=== PATIENT | female | born 1965 | race Caucasian/White ===

== ENCOUNTER → 2020-08-13 | Outpatient (CLI) | payer OTHER ==
--- NOTE | 2020-08-15 13:49 | RAD ---
DATE: 08/13/2020 11:37 AM EXAM: DIGITAL SCREEN BILAT W/CAD HISTORY: Screening COMPARISON: 05/07/2019 Bilateral full field craniocaudal and mediolateral oblique images were obtained using digital technique. This study was interpreted with the benefit of Computerized Aided Detection (CAD). FINDINGS: Breast Density: SCATTERED The breast parenchyma shows scattered fibroglandular densities. Breast parenchyma level B No suspicious masses, microcalcifications or architectural distortion is present to suggest malignancy in either breast. The visualized axillae are unremarkable. IMPRESSION: No mammographic evidence of malignancy. BI-RADS CATEGORY: 1 NEGATIVE RECOMMENDED FOLLOW-UP: 12M 12 MONTH FOLLOW-UP Annual screening mammography is recommended, unless clinically indicated sooner based on symptoms or change in physical exam. PQRS compliance statement: Patient information was entered into a reminder system with a target due date for the next mammogram. Mammography is a sensitive method for finding small breast cancers, but it does not detect them all and is not a substitute for careful clinical examination. A negative mammogram does not negate a clinically suspicious finding and should not result in delay in biopsying a clinically suspicious abnormality. "Our facility is accredited by the [employer] Mammography Program."
== END ==
LOC: MAMMO 11:33
PROVIDERS: ATTEND Internal Medicine
DX: Z12.31 Encounter for screening mammogram for malignant neoplasm of breast (principal)
CPT/HCPCS: 77067

== ENCOUNTER 2021-10-16 12:03 | Observation (INO) | payer OTHER ==
[~2021-10-16] VITALS: Ht 160 cm; Wt 74.6 kg
[2021-10-16] MEDS ORDERED: ACETAMINOPHEN 500 MG TABLET PO ONE ×2 (12:45→12:47)
[2021-10-16] MEDS ORDERED: ONDANSETRON PF 4 MG/2 ML VIAL. IVP ONE (12:45)
[2021-10-16] MEDS ORDERED: IV RINGERS SOLUTION,LACTATED 1,000 ML IV ONE (12:45)
[2021-10-16] MEDS ORDERED: ONDANSETRON PF 4 MG/2 ML VIAL. ONE (12:47)
--- NOTE | 2021-10-16 12:59 | EKG ---
[address] [address] Test Date: 2021-10-16 Test Time: 12:53:54 Pat Name: STAN BACA Department: Room: Gender: F [employer] Operator: KATARINA : 1965 Requested By: KAJAL LEIJA Order Number: [id number] Reading MD: Clemente Trejo MD Measurements Intervals [place] Rate: 88 P: 42 VA: 188 QRS: 87 QRSD: 104 T: 17 QT: 358 QTc: 437 Interpretive Statements SINUS RHYTHM Electronically Signed On 10-16-2021 20:39:17 RN [facility] by Clemente Trejo MD
--- NOTE | 2021-10-16 13:11 | RAD ---
Single view of the chest. 10/16/2021 12:53 PM Indication: Shortness of breath Comparison: None Findings: Calcified granuloma noted in the right upper lobe. No pneumothorax or effusion is seen. Mil d interstitial coarsening is seen, possibly chronic. Heart size is normal. No acute osseous changes a re identified. IMPRESSION: No evidence of acute cardiopulmonary process Electronically signed by: Sudhir Olson MD (10/16/2021 1:08 PM) [id number]
[2021-10-16 13:16] LABS: BASO % 0 % (0-3); EOS # 0.1 x10^3/uL (0.0-0.7); EOS % 2 % (0-3); HEMATOCRIT 39.6 % (36.0-47.0); HEMOGLOBIN 13.2 g/dL (12.0-15.5); LYMPH % 18 % (24-48); MEAN CORPUSCULAR HEMOGLOBIN 27 pg (25-35); MEAN CORPUSCULAR HGB CONC 34 g/dL (31-37); MEAN CORPUSCULAR VOLUME 81 fL (79-100); MONO # 0.5 x10^3/uL (0.0-1.1); MONO % 9 % (0-9); NEUT % 72 % (31-73); PLATELET COUNT 178 x10^3/uL (140-400); RED BLOOD COUNT 4.91 x10^6/uL (3.50-5.40); RED CELL DISTRIBUTION WIDTH 14.2 % (11.5-14.5); WHITE BLOOD COUNT 5.6 x10^3/uL (4.0-11.0)
[2021-10-16 13:23] LABS: CALCIUM 9.2 mg/dL (8.5-10.1); CREATININE 1.3 mg/dL (0.6-1.0); GFR 42.7; POTASSIUM 3.7 mmol/L (3.5-5.1)
[2021-10-16 13:36] LABS: ALBUMIN 4.4 g/dL (3.4-5.0); TOTAL BILIRUBIN 0.6 mg/dL (0.2-1.0); TOTAL PROTEIN 8.6 g/dL (6.4-8.2)
[2021-10-16 13:37] LABS: INFLUENZA A PATIENT NEGATIVE (NEGATIVE); INFLUENZA B PATIENT NEGATIVE (NEGATIVE)
[2021-10-16] MEDS ORDERED: IOHEXOL 350 MG/ML 100 ML VIAL. IV ONE (13:45)
[2021-10-16] MEDS ORDERED: DEXAMETHASONE SOD PHOS 4 MG/ML VIAL. IVP ONE (13:45)
[2021-10-16] MEDS ORDERED: IPRATRPIUM/ALBUTEROL 0.5/2.5MG 3 ML NEBU. NEB ONE (14:15)
--- NOTE | 2021-10-16 14:16 | RAD ---
CTA CHEST INDICATION: COVID+, elev d dimer, SOA, COUGH Comparison: Radiograph 10/16/2021. TECHNIQUE: Following the uneventful administration of intravenous contrast, 75 cc Isovue-370, axial C T sections were obtained through the lungs and upper abdomen. Multiplanar reconstructions and MIP manuel ges were obtained. PQRS compliance statement: One or more of the following individualized dose reduction techniques were utilized for this examinat ion: 1. Automated exposure control 2. Adjustment of the mA and/or kV according to patient size 3. Use of iterative reconstruction technique FINDINGS: Pulmonary arteries: No evidence of pulmonary thromboembolic disease. Lungs and Airways: No pulmonary mass or consolidation. Calcified pulmonary granulomas. No abnormality of the central airways. Pleura: The pleural spaces are normal. Heart and Mediastinum: The visualized thyroid is normal in size and attenuation. No axillary or supra clavicular lymphadenopathy. No mediastinal, hilar or retrocrural lymphadenopathy. Calcified mediastin al and hilar lymph nodes consistent with remote granulomatous disease. The heart and pericardium are within normal limits. The great vessels of the thorax are normal. Abdomen: Limited images through the upper abdomen show no abnormality of the visualized organs. Bones and Soft Tissues: The visualized bones and chest wall soft tissues are within normal limits. IMPRESSION: 1. No evidence of pulmonary thromboembolic disease. 2. Scattered bilateral groundglass opacities and consolidations, likely multifocal infection Electronically signed by: Jordon Ortiz MD (10/16/2021 2:14 PM) [id number]
[2021-10-16] MEDS ORDERED: ACETAMINOPHEN 325 MG TABLET PO PRN (15:15)
[2021-10-16] MEDS ORDERED: ONDANSETRON PF 4 MG/2 ML VIAL. IVP PRN (15:15)
--- NOTE | 2021-10-16 15:26 | PHYS DOC ---
Past History Additional Past Medical Histor: PTSD Past Surgical History: Other Additional Past Surgical Histo: right shoulder, hand, foot, ASD closure Alcohol Use: None Adult General Chief Complaint Chief Complaint: COUGH HPI HPI The patient is a 55-year-old female with a history of hyperlipidemia, COPD not on home oxygen and insulin-dependent diabetes. She has been vaccinated against COVID-19 with 2 doses of the Pfizer vaccine. She presents for evaluation of almost 2 weeks of fevers, upper respiratory congestion/rhinorrhea, cough, sore throat, fatigue, malaise, body aches and watery diarrhea. She has had some vomiting as well and has not been able to take anything much by mouth over the past few days. She has been feeling very dehydrated and also dyspneic with minimal exertion over the past couple of days. Family today finally prevailed upon her to come in for evaluation. Patient denies chest pain of any kind, abdominal pain of any kind, flank pain, midline back pain, dysuria, hematuria, polyuria or oliguria. Upon initial evaluation here in the emergency department, oxygen saturation is marginal in the very low nineties on room air but other vital signs are appropriate here. Patient is afebrile. She is in no acute distress. Review of Systems Review of Systems Constitutional: Denies fever or chills [] Eyes: Denies change in visual acuity, redness, or eye pain [] HENT: Denies nasal congestion or sore throat [] Respiratory: Denies cough or shortness of breath [] Cardiovascular: No additional information not addressed in HPI [] GI: Denies abdominal pain, nausea, vomiting, bloody stools or diarrhea [] : Denies dysuria or hematuria [] Musculoskeletal: Denies back pain or joint pain [] Integument: Denies rash or skin lesions [] Neurologic: Denies headache, focal weakness or sensory changes [] Endocrine: Denies polyuria or polydipsia [] All other systems were reviewed and found to be within normal limits, except as documented in this note. Current Medications Current Medications Current Medications Medications (Trade) Dose Ordered Sig/Radha Start Time Stop Time Status Last Admin Dose Admin Acetaminophen (Tylenol) 650 mg PRN Q4HRS PRN 10/16/21 15:15 10/17/21 15:14 UNV Albuterol/ Ipratropium (Duoneb) 3 ml 1X ONCE 10/16/21 14:15 10/16/21 14:16 DC 10/16/21 14:39 3 ML Dexamethasone Sodium Phosphate (Decadron) 6 mg 1X ONCE 10/16/21 13:45 10/16/21 13:47 DC 10/16/21 14:09 6 MG Iohexol (Omnipaque 350 Mg/ml) 100 ml 1X ONCE 10/16/21 13:45 10/16/21 13:47 DC 10/16/21 13:53 100 ML Lactated Ringer's 1,000 ml @ 999 mls/hr 1X ONCE 10/16/21 12:45 10/16/21 13:45 DC 10/16/21 13:01 999 MLS/HR Ondansetron HCl (Zofran) 4 mg PRN Q4HRS PRN 10/16/21 15:15 10/17/21 15:14 UNV Sodium Chloride 1,000 ml @ 85 mls/hr [id number] 10/16/21 15:15 10/17/21 15:14 UNV Allergies Allergies Allergies Coded Allergies Type Severity Reaction Last Updated Verified No Known Drug Allergies 10/16/21 No Physical Exam Physical Exam Older female appearing nontoxic and in no acute distress. Head is normocephalic and atraumatic. Neck is supple and nontender. Oropharynx is moist. Lungs are clear to auscultation at all stations. There is a normal S1 and S2 without rubs or gallops and capillary refill is appropriate, less than 2 seconds globally. Abdomen is soft, nontender and nondistended. Skin is warm and dry without cyanosis, clubbing or edema. Psychiatrically, the patient demonstrates appropriate mood and affect and is alert. Evaluation of the extremities reveals BUEs and BLEs neurovascularly intact distally with strength out of 5, sensation intact light touch in all nerve distributions, radial, DP and PT pulses 2+ equal bilaterally, capillary refill less than 2 seconds, hands and feet warm and well-perfused. No dependent peripheral edema distally. No calf tenderness or swelling bilaterally. Homans test is negative bilaterally. Current Patient Data Vital Signs Vital Signs Date Time Temp Pulse Resp B/P (MAP) Pulse Ox O2 Delivery O2 Flow Rate FiO2 10/16/21 14:40 94 Room Air 10/16/21 14:00 83 18 132/78 (96) 10/16/21 12:21 98.1 Lab Results Laboratory Tests Test 10/16/21 12:40 White Blood Count 5.6 x10^3/uL (4.0-11.0) Red Blood Count 4.91 x10^6/uL (3.50-5.40) Hemoglobin 13.2 g/dL (12.0-15.5) Hematocrit 39.6 % (36.0-47.0) Mean Corpuscular Volume 81 fL (79-100) Mean Corpuscular Hemoglobin 27 pg (25-35) Mean Corpuscular Hemoglobin Concent 34 g/dL (31-37) Red Cell Distribution Width 14.2 % (11.5-14.5) Platelet Count 178 x10^3/uL (140-400) Neutrophils (%) (Auto) 72 % (31-73) Lymphocytes (%) (Auto) 18 % (24-48) L Monocytes (%) (Auto) 9 % (0-9) Eosinophils (%) (Auto) 2 % (0-3) Basophils (%) (Auto) 0 % (0-3) Neutrophils # (Auto) 4.0 x10^3uL (1.8-7.7) Lymphocytes # (Auto) 1.0 x10^3/uL (1.0-4.8) Monocytes # (Auto) 0.5 x10^3/uL (0.0-1.1) Eosinophils # (Auto) 0.1 x10^3/uL (0.0-0.7) Basophils # (Auto) 0.0 x10^3/uL (0.0-0.2) Prothrombin Time 10.1 SEC (9.4-11.4) Prothrombin Time INR 1.0 (0.9-1.1) Activated Partial Thromboplast Time 24 SEC (23-33) D-Dimer (Lorri) 0.59 mg/L (0.00-0.50) H Sodium Level 134 mmol/L (136-145) L Potassium Level 3.7 mmol/L (3.5-5.1) Chloride Level 95 mmol/L (98-107) L Carbon Dioxide Level 26 mmol/L (21-32) Anion Gap 13 (6-14) Blood Urea Nitrogen 21 mg/dL (7-20) H Creatinine 1.3 mg/dL (0.6-1.0) H Estimated GFR (Cockcroft-Gault) 42.7 BUN/Creatinine Ratio 16 (6-20) Glucose Level 134 mg/dL (70-99) H Calcium Level 9.2 mg/dL (8.5-10.1) Total Bilirubin 0.6 mg/dL (0.2-1.0) Aspartate Amino Transferase (AST) 78 U/L (15-37) H Alanine Aminotransferase (ALT) 58 U/L (14-59) Alkaline Phosphatase 112 U/L (46-116) Troponin I High Sensitivity 7 ng/L (4-50) RS-Jue-O-Type Natriuretic Peptide 63 pg/mL (0-124) Total Protein 8.6 g/dL (6.4-8.2) H Albumin 4.4 g/dL (3.4-5.0) Albumin/Globulin Ratio 1.0 (1.0-1.7) Influenza Type A (Rapid) Negative (NEGATIVE) Influenza Type B (Rapid) Negative (NEGATIVE) SARS-CoV-2 Antigen (Rapid) Positive (NEGATIVE) *A EKG EKG [] Radiology/Procedures Radiology/Procedures CTA CHEST INDICATION: COVID+, elev d dimer, SOA, COUGH Comparison: Radiograph 10/16/2021. TECHNIQUE: Following the uneventful administration of intravenous contrast, 75 cc Isovue-370, axial CT sections were obtained through the lungs and upper abdomen. Multiplanar reconstructions and MIP images were obtained. PQRS compliance statement: One or more of the following individualized dose reduction techniques were utilized for this examination: 1. Automated exposure control 2. Adjustment of the mA and/or kV according to patient size 3. Use of iterative reconstruction technique FINDINGS: Pulmonary arteries: No evidence of pulmonary thromboembolic disease. Lungs and Airways: No pulmonary mass or consolidation. Calcified pulmonary granulomas. No abnormality of the central airways. Pleura: The pleural spaces are normal. Heart and Mediastinum: The visualized thyroid is normal in size and attenuation. No axillary or supraclavicular lymphadenopathy. No mediastinal, hilar or retrocrural lymphadenopathy. Calcified mediastinal and hilar lymph nodes consistent with remote granulomatous disease. The heart and pericardium are within normal limits. The great vessels of the thorax are normal. Abdomen: Limited images through the upper abdomen show no abnormality of the visualized organs. Bones and Soft Tissues: The visualized bones and chest wall soft tissues are within normal limits. IMPRESSION: 1. No evidence of pulmonary thromboembolic disease. 2. Scattered bilateral groundglass opacities and consolidations, likely multifocal infection Electronically signed by: Vicente Ortiz MD (10/16/2021 2:14 PM) [id number] DICTATED AND SIGNED BY: VICENTE ORTIZ MD DATE: 10/16/21 1409 CC: KAJAL LEIJA MD; BERNARD MONTANEZ ~MTH0 0 Heart Score C/O Chest Pain: No Risk Factors: Risk Factors: DM, Current or recent (<one month) smoker, HTN, HLP, family history of CAD, obesity. Risk Scores: Risk Factors: DM, Current or recent (<one month) smoker, HTN, HLP, family history of CAD, obesity. Course & Med Decision Making Course & Med Decision Making Patient resting comfortably in no acute distress on serial reassessments. Oxygen saturation is marginal in the very low nineties on room air. I have tried some empiric bronchodilator therapy but patient was not wheezing on arrival and do not feel that she is in COPD exacerbation. Does have abundant evidence of COVID pneumonia. Given marginal saturation and other symptoms and his comorbid 55-year-old, will bring in for further care and observation basis. Dr. García graciously accepts. Dragon Disclaimer Dragon Disclaimer This electronic medical record was generated, in whole or in part, using a voice recognition dictation system. Departure Departure: Impression: Primary Impression: Pneumonia due to COVID-19 virus Additional Impression: Acute hypoxemic respiratory failure due to COVID-19 Disposition: ADMITTED INPATIENT Condition: GUARDED Referrals: BERNARD MONTANEZ (PCP) Problem Qualifiers KAJAL LEIJA MD Oct 16, 2021 15:26
[2021-10-16] MEDS: IV NORMAL SALINE 1,000ML 1,000 ML IV SCH (15:33)
[2021-10-16 16:15] LABS: BACTERIA,URINE 0 /HPF (0-FEW); BILIRUBIN,URINE NEG (NEG); CLARITY,URINE CLEAR; COLOR,URINE YELLOW; GLUCOSE,URINE NEG (NEG); NITRITE,URINE NEG (NEG); RBC,URINE 0 /HPF (0-2); SQUAMOUS EPITHELIAL CELL,UR FEW /LPF; UROBILINOGEN,URINE 0.2 mg/dL (0.2 mg/dL); WBC,URINE OCC /HPF (0-4)
[2021-10-16] MEDS ORDERED: DEXAMETHASONE SOD PHOS 4 MG/ML VIAL. IVP SCH (18:00)
[2021-10-16 18:53] VITALS: BP 114/69
[2021-10-16 19:47] VITALS: BP 108/61
[2021-10-16 23:40] VITALS: BP 121/71
[2021-10-17] MEDS: IV NORMAL SALINE 1,000ML 1,000 ML IV SCH (03:01)
[2021-10-17 05:42] VITALS: BP 106/64
[2021-10-17 07:40] LABS: BASO % 0 % (0-3); EOS % 1 % (0-3); HEMATOCRIT 32.8 % (36.0-47.0); HEMOGLOBIN 11.2 g/dL (12.0-15.5); LYMPH # 0.7 x10^3/uL (1.0-4.8); LYMPH % 19 % (24-48); MEAN CORPUSCULAR HEMOGLOBIN 27 pg (25-35); MEAN CORPUSCULAR HGB CONC 34 g/dL (31-37); MEAN CORPUSCULAR VOLUME 81 fL (79-100); MONO # 0.4 x10^3/uL (0.0-1.1); MONO % 10 % (0-9); NEUT # 2.6 x10^3uL (1.8-7.7); NEUT % 70 % (31-73); PLATELET COUNT 159 x10^3/uL (140-400); RED BLOOD COUNT 4.07 x10^6/uL (3.50-5.40); RED CELL DISTRIBUTION WIDTH 14.8 % (11.5-14.5); WHITE BLOOD COUNT 3.7 x10^3/uL (4.0-11.0)
[2021-10-17 07:49] LABS: ALBUMIN 3.1 g/dL (3.4-5.0); ALBUMIN/GLOBULIN RATIO 0.8 (1.0-1.7); CALCIUM 8.3 mg/dL (8.5-10.1); GFR 57.8; POTASSIUM 3.9 mmol/L (3.5-5.1); TOTAL BILIRUBIN 0.4 mg/dL (0.2-1.0)
[2021-10-17] MEDS ORDERED: ZINC SULFATE 220 MG CAPSULE. PO SCH (09:00)
[2021-10-17] MEDS ORDERED: ASCORBIC ACID 1,000 MG TABLET PO SCH (09:00)
[2021-10-17] MEDS ORDERED: DEXAMETHASONE SOD PHOS 10 MG/ML VIAL. IV SCH (09:00)
--- NOTE | 2021-10-17 09:53 | HP ---
DATE OF SERVICE: 10/17/2021 ADMIT DATE: 10/16/2021 ATTENDING PHYSICIAN: Dr. García. CHIEF COMPLAINT: Cough. HISTORY OF PRESENT ILLNESS: The patient is a 55-year-old female, normally [facility]. She has had a 2-day history of cough and congestion and generalized malaise. The cough is nonproductive. She has been fully vaccinated. However, x-rays demonstrated bibasilar infiltrates consistent with atypical pneumonia. She did test positive for COVID. I suspect she has the Omicron variant despite being fully vaccinated. Her oxygen saturations were borderline. She was admitted then for further evaluation. She was given a dose of Decadron and Rocephin in the ED. She is a nonsmoker. PAST MEDICAL HISTORY: Significant for posttraumatic stress syndrome, right shoulder injury, atrial septal defect closure. She also has diabetes and hypertension. ALLERGIES: She has no known drug allergies. CURRENT MEDICATIONS: Reviewed. Prior to coming in, she was given a dose of Decadron. I am not aware of her home medications at this time. FAMILY HISTORY: Noncontributory. SOCIAL HISTORY: She is a nonsmoker, nondrinker. REVIEW OF SYSTEMS: Significant for the dry nonproductive cough. No recent exposure. She has been fully vaccinated. All other systems reviewed and turned to be negative. PHYSICAL EXAMINATION: GENERAL: When I saw her, this is a pleasant, middle-aged female. VITAL SIGNS: Initial vital signs showed a blood pressure of 106/64. Her oxygen saturation by the time I saw her the next morning was up to 93% on room air. Her pulse is 67 and regular. She was afebrile. HEENT: Head is without trauma. Pupils are reactive. Sclerae are nonicteric. The oropharynx is clear. NECK: Supple. LUNGS: With minimal rhonchi at the bases. CARDIOVASCULAR: Regular heart tones. ABDOMEN: Soft. EXTREMITIES: Without edema. NEUROLOGIC FINDINGS: Focally intact. PERTINENT IMAGING AND LABORATORY STUDIES: Chest x-ray and CT as noted. Hemoglobin 11.2 grams, white count 5600. Electrolytes: BUN and creatinine all within normal range. Nonfasting blood sugar 140. Transaminases were normal. ASSESSMENT: 1. A 55-year-old female with COVID pneumonia bilaterally. She has been fully vaccinated. I suspect this is the Omicron variant. 2. Symptoms are mild. She does not require supplemental oxygen. 3. Underlying diabetes. I am not sure of her regimen. 4. Essential hypertension. PLAN: 1. Admit to the inpatient unit, observation status. 2. Decadron. 3. Empiric antibiotics. 4. Wean down supplemental oxygen. IDALIA/DAPHNIE DR: Renee TID: [id number]
--- NOTE | 2021-10-17 11:21 | DS ---
DATE OF DISCHARGE: 10/17/2021 ATTENDING PHYSICIAN: Dr. García. FINAL DISCHARGE DIAGNOSES: 1. A 55-year-old female with COVID pneumonia bilaterally. 2. Mild hypoxemia, resolved. 3. Underlying hypertension. 4. The patient has been fully vaccinated. HISTORY AND PHYSICAL: The patient is a 55-year-old female, [facility]. She has had a 2-day history of cough, congestion, low-grade fevers. She was tested positive for coronavirus despite the fact that she has been fully vaccinated a year ago. I suspect this is the omicron variant. She was admitted. She had mild hypoxemia, requiring only 1 liter of oxygen. PHYSICAL EXAMINATION: Please see the dictated note. PERTINENT LABORATORY AND X-RAY STUDIES: On the database, swab indeed positive for coronavirus. Chest x-ray demonstrated diffuse patchy infiltrates in the bases. Oxygen saturation dropped to 93% on room air by the time I saw her. COURSE IN HOSPITAL: The patient was admitted overnight. She was given one empiric dose of Rocephin along with Decadron, zinc and supplemental oxygen. She was able to be weaned off of it. The next day I saw her lungs, she had good air movement, she was clinically stable. She wanted to go home. I felt this is reasonable. I explained to her she is still contagious, needs to be in quarantine for the next 5-7 days. I did write her a script for Decadron 8 mg p.o. daily for a week, in addition cephalexin 500 mg p.o. t.i.d. [facility]. She was discharged then from our hospital in stable condition with explicit written and followup care. NAVYA DR: Renee TID: [id number]
== END 2021-10-17 10:42 | disposition home or self-care (01) ==
LOC: ER 12:03 → ER HOLD 15:12 → 1 SOUTH 17:23
PROVIDERS: ADMIT Hospitalist; ATTEND Hospitalist
DX: U07.1 COVID-19 (principal); J96.01 Acute respiratory failure with hypoxia; J12.82 Pneumonia due to coronavirus disease 2019; I10 Essential (primary) hypertension; E11.9 Type 2 diabetes mellitus without complications; E78.5 Hyperlipidemia, unspecified; E86.0 Dehydration; F43.10 Post-traumatic stress disorder, unspecified; Z87.74 Personal history of (corrected) congenital malformations of heart and circulatory system; Z79.899 Other long term (current) drug therapy; Z98.890 Other specified postprocedural states
CPT/HCPCS: 36415; 71045; 71275; 80053; 81001; 82947; 83880; 84484; 85025; 85379; 85610; 85730; 87040; 93005; 94640; 96361; 96374; 96375; 96376; 99285; G0378; J1100; J2405; J7030; J7120; Q9967; U0003; G0379